=== PATIENT | female | born 1995 | race Caucasian/White ===

== ENCOUNTER 2018-05-04 21:57 | Emergency (ER) | payer OTHER ==
[~2018-05-04] VITALS: Ht 154.9 cm; Wt 90.7 kg
--- OUTSIDE RECORDS SUMMARY | 2018-05-04 21:59 | XMS REPORT | Continuity of Care Document ---
Author Author [facility] [employer] [facility] Interface Address Unknown Phone Unavailable Problems Problem Status Onset Date Classification Date Reported Comments Source Acute lower respiratory tract infection 06/11/2016 Diagnosis 06/11/2016 [facility] Acute pharyngitis 06/11/2016 Diagnosis 06/11/2016 [facility] Patient currently 06/11/2016 Diagnosis 06/11/2016 [facility] Acute Pharyngitis Problem 06/11/2016 [facility] Acute Lower Respiratory Tract Infection Problem 06/11/2016 [facility] Medications Medication Details Route Status Patient Instructions Ordering Provider Order Date Source Azithromycin 250 MG Oral Tablet azithromycin 250 mg tablet TAKE 2 TABLETS (500 MG) BY ORAL ROUTE ONCE DAILY FOR 1 DAY THEN 1 TABLET (250 MG) BY ORAL ROUTE ONCE DAILY FOR 4 DAYS Active [facility] Allergies, Adverse Reactions, Alerts Substance Category Reaction Severity Reaction type Status Date Reported Comments Source Immunizations Immunization Date Given Site Status Last Updated Comments Source Tdap 05/24/2009 completed [facility] Results Order Name Results Value Reference Range Date Interpretation Comments Source Influenza A negative 06/11/2016 [facility] Influenza B negative 06/11/2016 [facility] RESULT negative 06/11/2016 [facility] SWAB LOCATION Left and Right tonsillar pillars 06/11/2016 [facility] Vital Signs Vital Sign Value Date Comments Source Diastolic (mm Hg) 64 06/11/2016 [facility] Height 61 06/11/2016 [facility] Systolic (mm Hg) 124 06/11/2016 [facility] Weight 177 06/11/2016 [facility] Encounters Location Location Details Encounter Type Encounter Number Reason For Visit Attending Provider ADM Date DC Date Status Source [place] - [facility] - [id number] Chamorro, PROSTHETIC ASSISTANT: [address] [place] [address], Ph. [id number] Doni Chamorro 06/11/2016 [facility] Procedures Procedure Code Date Perfomer Comments Source
--- OUTSIDE RECORDS SUMMARY | 2018-05-04 21:59 | XMS REPORT | Encounter Summary ---
Author Organization Unknown Address [address] [place] [id number] Phone [phone] Reason for Visit Medical Complaint; cough, congestion, sore throat, body aches x 1 week Instructions 1. Acute lower respiratory tract infection azithromycin 250 mg tablet rapid flu (A+B) 2. Acute pharyngitis rapid strep group A, throat sore throat: care instructions 3. Patient currently Discussion Note Pt is aaox3 and in NAD; verbalizes understanding of all instructions and has no further questions at this time Plan of Care Patient Instructions Take medications as prescribed and discussed; follow up with your PCP within 2-3 days or sooner should symptoms worsen Reminders Provider Appointments None recorded. Lab Rapid Flu (A+B) 06/11/2016 [facility] Rapid Strep Group a, Throat 06/11/2016 [facility] Referral None recorded. Procedures None recorded. Surgeries None recorded. Imaging None recorded. Medications Name Start Date azithromycin 250 mg tablet TAKE 2 TABLETS (500 MG) BY ORAL ROUTE ONCE DAILY FOR 1 DAY THEN 1 TABLET (250 MG) BY ORAL ROUTE ONCE DAILY FOR 4 DAYS Medications Administered None recorded. Vitals Height Weight BMI Blood Pressure 5 ft 1 in 177 lbs 33.4 124/64 Lab Results Date Name Result Description Value Range Status Rapid Flu (A+B) Influenza a negative Influenza B negative Rapid Strep Group a, Throat Result negative Swab Location Left and Right tonsillar pillars Allergies Name Reaction Severity Onset NKDA Problems Name Status Onset Date Source Acute Pharyngitis Active Encounter Acute Lower Respiratory Tract Infection Active Encounter Procedures None recorded. Vaccine List Vaccine Type Tdap 05/23/2009 Social History Smoking Status Never Smoker Past Encounters 06/11/2016 Acute Lower Respiratory Tract Infection; Acute Pharyngitis; Patient Currently Doni Chamorro, PEDIATRICIAN: [address], [place] [address], Ph. History of Present Illness [id number] Reported By: Patient HPI: Quality: cannot identify. Duration: 7 days. Severity: subjective temperature, same. Onset/Timing: first recorded 7 daysago. Context: no tick/insect bites, no recent travel, no new medications, ill contacts. Associated Symptoms: no rash, no lethargy, fever/chills, headache, muscle aches, cold symptoms, tired (fatigue), cough, nasal passage blockage (stuffiness), nasal discharge. Modifying Factors nothing gives relief Review of Systems:ROS as noted in the HPI Review of Systems Basic Reported By: Patient Physical Exam Adult Basic, Adult Female Complete, 14-21 Yr Females Constitutional: General Appearance: healthy-appearing, well-nourished, well-developed. Level of Distress: NAD. Ambulation: ambulating normally Psychiatric: Mental Status: active and alert, normal affect, normal mood. Orientation: to time, to place, to person Eyes: Vision: acuity grossly intact Pyw-Kyqf-Erzfe-Throat: Ears: no lesions on external ear, no outer ear tenderness, EACs clear, TMs clear. Hearing: no hearing loss. Nose: no lesions on external nose, nares patent, no septal deviation, nasal passages clear, no sinus tenderness, nasal discharge--rhinorrhea, post nasal drip. Lips, Teeth, and Gums: no mouth or lip ulcers, no bleeding gums, normal dentition. Oropharynx: moist mucous membranes, no exudates, erythema, tonsils enlarged 2+ Neck: Lymph Nodes: no cervical LAD, no supraclavicular LAD Lungs: Respiratory effort: no dyspnea, no tachypnea, no use of accessory muscles, no intercostal retractions. Auscultation: no wheezing, no rhonchi, no retractions, wet rales/crackles, rales/crackles bilaterally Cardiovascular: Heart Auscultation: RRR, no murmurs, no gallops, no rub Neurologic: Gait and Station: normal gait, normal station
--- NOTE | 2018-05-04 23:29 | Diagnostic Imaging Report ---
ANKLE 3+ VIEWS LEFT, FOOT LEFT COMPLETE HISTORY: Foot injury. COMPARISON: None available. FINDINGS: Bones: No acute displaced fracture. Osseous alignment is within normal limits. Joints: The joint spaces are well-maintained. Soft tissues: The soft tissues appear unremarkable. IMPRESSION: No acute radiographic abnormality. Signed by: DR. Greg Mann MD on 05/04/2018 11:25 PM
== END 2018-05-05 01:00 | disposition home or self-care (01) ==
LOC: ER 21:57
DX: S90.32XA Contusion of left foot, initial encounter (principal); S93.492A Sprain of other ligament of left ankle, initial encounter; X50.1XXA Overexertion from prolonged static or awkward postures, initial encounter; Y92.008 Other place in unspecified non-institutional (private) residence as the place of occurrence of the external cause; Z33.1 Pregnant state, incidental
CPT/HCPCS: 99284